=== PATIENT | male | born 1985 | race Caucasian/White ===

== ENCOUNTER 2020-07-14 08:00 | Outpatient (RCR) | payer BC, SELFPAY ==
--- NOTE | 2020-07-14 08:46 | HMH.RHREAS ---
Rehab Reassessment Rehab OP Re-assessment Start: 07/14/20 08:37 Freq: Status: Active Protocol: Document 07/14/20 08:37 MARY (Rec: 07/14/20 08:46 MARY [id number]) Electronically Signed By Naeem Vásquez, PT 07/14/20 08:37 Rehab Re-assessment Subjective Subjective Patient reports 85 % improvement and no radicular symptoms. Objective Objective Notes AROM: WNL MMT: WNL Pain: 3/10 at worst over past week centralized to lumbar spine. Neuro: WNL TTP: L4/5/S1 05/02 Assessment Progress Assessment Progressing as Expected Assessment Notes Patient expressed that he feels he is ready to be done with physical therapy at this point, and will return if symptoms worsen. Overall decreased functional limitations noted. Reviewed proper bending/lifting mechanics to avoid symptom exacerbation with work related activities. Patient reports that he has lost approx 40 lbs which is contributing to symptom relief. Patient goals met STG's, All LTG's except for pain at worst Goals Not Met Pain at worst Revised Goals NA Plan Plan DC at this time to continue with HEP. Time and Billing Re-Eval Time 15 Re-Eval Billing Units 1 PHYSICIAN CERTIFICATION: I certify the specified therapy services for Karen Comer are required, authorized, and reviewed every 30 days.
== END 2020-07-14 08:05 | disposition home or self-care (01) ==
LOC: PT 08:00
PROVIDERS: PCP Family Medicine; Visit Provider Family Medicine
DX: M54.16 Radiculopathy, lumbar region; M51.9 Unspecified thoracic, thoracolumbar and lumbosacral intervertebral disc disorder
CPT/HCPCS: 97010; 97012; 97014; 97110; 97163; 97164; G0283

== ENCOUNTER 2021-07-25 11:07 | Emergency (ER) | payer BC, SELFPAY ==
--- NOTE | 2021-07-25 12:22 | XR_ITS ---
FINAL REPORT CLINICAL HISTORY: PAIN FINDINGS: LEFT KNEE: Three views of the left knee were obtained. There is no acute fracture or dislocation. Visualized joint spaces are normally aligned. There are chronic calcifications adjacent to the medial tibial plateau and anterior to the upper patella. There is no joint effusion. Soft tissues are unremarkable. IMPRESSION: No acute bony abnormality. Reviewed, Interpreted and Dictated by Edmundo Lomas III, MD Transcribed by Suki Hugo Authenticated by Edmundo Lomas III, MD on 07/25/2021 01:45:47 PM [facility]
[2021-07-25 13:20] VITALS: BP 146/96; PULSE 77; RESP 16; TEMP 36.8; O2SAT 99; BMI 52.3
--- NOTE | 2021-07-25 13:41 | HMH.EDUTC ---
[facility] [place] Clinical Impression: Knee strain Qualifiers: Encounter type: initial encounter Laterality: left Qualified Code(s): S86.912A - Strain of unspecified muscle(s) and tendon(s) at lower leg level, left leg, initial encounter Disposition: Home, Self-Care Condition on Discharge: Good Instructions: DI for Knee Pain Additional Instructions: *weight bearing as tolerated *RICE, Rest the extremity, Ice 15-20 minutes 3-4 times daily, Compress- wear the gerhard wrap as discussed as much as possible to help reduce swelling and pain, Elevate the extremity when at rest *Gerhard wrap or knee brace is for support and help control swelling, use it except in the shower. Be sure that is not to tight but not to loose either *Elevate when resting *Ibuprofen as directed on package every 6-8 hours as needed for pain an inflammation. If need something more can take Tylenol in between doses of Ibuprofen to help Immediately follow up with your family doctor for new or worsening of symptoms, or no noticeable improvement over the next 3-5 days Follow up with Orthopedics or you Family Doctor if no improvement or any worsening of symptoms Return if needed Prescriptions: methylPREDNISolone [Medrol 4mg tab] 4 mg PO DIRECTED #21 tab Transmission Status: Received by [facility] Referrals: Yasmany Jacobo MD [Primary Care Provider] - As needed Ruben Mendenhall JR, MD [Physician] - Forms: Work/School Release Time of Disposition: 14:13 Medical Decision Making - Herminio Inquiry Pt receiving controlled substance: No Herminio was queried for this patient: No Vital Signs: 07/25/21 13:20 07/25/21 14:35 Temperature 98.3 F 98.3 F Temperature Source Oral Pulse Rate 77 Pulse Rate [Left] 77 Respiratory Rate 16 16 Blood Pressure 146/96 H Blood Pressure [Right Arm] 146/96 H Blood Pressure Mean [Right Arm] 112 02 Sat by Pulse Oximetry 99 - Lab Data Lab results reviewed: Yes: I reviewed the patient's lab results. Lab Results 07/25/21 13:23: Uric Acid 4.0 - Radiology Data #1 Image(s): Knee (left) Image Reviewed: Yes I have reviewed radiologist's interpretation IMPRESSION: No acute bony abnormality. Medical Decision Narrative: Awaiting uric acid results from lab [facility] [place] - General Stated complaint: lt knee pain/tightness Time Seen by Provider: 07/25/21 13:41 Mode of Arrival: Ambulatory Source of Information: Patient Limitations: No Limitations Description of Symptoms (Recalled from Triage Doc. by RN): pt c/o L knee pain x3 days. denies injury. HEENT Symptoms (Recalled from RN notes): No Resp Symptoms (Recalled from RN notes): No Skin Symptoms (Recalled from RN notes): No MS Symptoms (Recalled from RN notes): Yes Functional Status (Recalled from RN notes): wnl - History of Present Illness Provider Complaint: Patient states that he has been having pain in his left knee for the last 3 days States that he doesnt recall doing anything to hurt it but for the last 3 days he has been having pain when he walks States that pain is worse when he tries to straighten it States that he has had issues with his lower back also and his PCP gives him steriods to help wanting to see if he could get a round to help - Related Data Previous Rx's Medication Instructions Recorded amoxicillin 875 mg tablet 875 mg PO Q12H 10 Days #20 tab 06/16/19 methylPREDNISolone [Medrol 4mg 4 mg PO DIRECTED #21 tab 07/25/21 tab] Allergies Allergy/AdvReac Type Severity Reaction Status Date / Time No Known Allergies Allergy Verified 06/19/19 19:37 - Worker's Comp Is this a Worker's Comp case?: No [facility] History - Hepatitis A Screen Drug use history?: No High risk sexual behaviors?: No History of sexually transmitted infection?: No Currently employed?: No Childcare worker?: No Do you have indoor plumbing?: Yes Do you have electricity?: Yes Attestation statement:: This patient has been screened for Hepatitis A
[2021-07-25 14:35] VITALS: BP 146/96; PULSE 77; RESP 16; TEMP 36.8
== END 2021-07-25 14:36 | disposition home or self-care (01) ==
PROVIDERS: Emergency Provider Nurse Practitioner; PCP Family Medicine
DX: S86.912A Strain of unspecified muscle(s) and tendon(s) at lower leg level, left leg, initial encounter (principal); F41.9 Anxiety disorder, unspecified
CPT/HCPCS: 29505; 73562; 84550; 99213; G0463